=== PATIENT | female | born 1935 | race Hispanic/Latino ===

== ENCOUNTER → 2021-03-15 | Outpatient (CLI) | payer MEDICARE | LOC: US 10:49 | PROVIDERS: ATTEND Internal Medicine Nephrology | DX: N18.30 Chronic kidney disease, stage 3 unspecified (principal) | CPT/HCPCS: 76770; 76857 ==

== ENCOUNTER → 2021-08-31 | Outpatient (CLI) | payer MEDICARE | LOC: RAD 13:08 | PROVIDERS: ATTEND Internal Medicine | DX: R07.81 Pleurodynia (principal) | CPT/HCPCS: 71101 ==

== ENCOUNTER → 2023-05-05 | Outpatient (REF) | payer MEDICARE | LOC: RAD 08:44 | PROVIDERS: ATTEND Internal Medicine | DX: M25.512 Pain in left shoulder (principal); R07.82 Intercostal pain | CPT/HCPCS: 71101 ==